=== PATIENT | female | born 1995 | race Caucasian/White ===

== ENCOUNTER 2017-02-10 05:05 | Emergency (ER) | payer OTHER ==
[2017-02-10 05:36] LABS: AMYLASE 33 IU/L (1-118); CHLORIDE 104 mEq/L (99-109); POTASSIUM 3.7 mEq/L (3.7-5.4); SODIUM 141 mEq/L (136-147)
[2017-02-10 05:37] LABS: GLUCOSE 173 mg/dL (70-99)
[2017-02-10 05:39] LABS: ANION GAP 14 MEQ/L (2-14); BASOPHIL COUNT 0.2 K/uL (0-0.1); EOSINOPHIL (%) 1.3 % (0-5); EOSINOPHIL COUNT 0.4 K/uL (0-0.3); HEMATOCRIT 42.4 % (36.0-46.0); IMMATURE GRANULOCYTE (%) 1.7 % (0.0-0.7); IMMATURE GRANULOCYTE COUNT 0.5 K/uL; INSTRUMENT ABS NEUTROPHIL CT 21.7 K/uL; LYMPHOCYTE COUNT 4.8 K/uL (1.0-2.8); MCH 30.7 PG (29.0-34.0); MCV 90.4 FL (83-99); MEAN PLAT.VOLUME 12.4 uM^3 (9.5-12.4); MONOCYTE (%) 4.4 % (3-12); MONOCYTE COUNT 1.3 K/uL (0-0.8); NEUTROPHIL (%) 75.3 % (45-76); NEUTROPHIL COUNT 21.7 K/uL (1.8-6.4); PLATELET COUNT 267 K/uL (156-360); RBC DIS.WIDTH-CV 11.9 % (11.8-14.6); RBC DIS.WIDTH-SD 39.3 % (39-53); RED BLOOD COUNT 4.69 M/uL (3.80-5.20); WHITE BLOOD COUNT 28.8 K/uL (4.1-10.2)
[2017-02-10 05:41] LABS: SERUM ETHYL ALCOHOL < 10 mg/dL
[2017-02-10 05:42] LABS: UREA NITROGEN (BUN) 16 mg/dL (9-23)
[2017-02-10 05:44] LABS: LIPASE 27 U/L (1.0-51.0)
[2017-02-10 05:45] LABS: GFR ESTIMATE (CALCULATED) > 59 mL/min/
[2017-02-10 06:19] LABS: QUANTITATIVE HCG < 4.0 MIU/ML
[2017-02-10 07:46] LABS: ADD MIUA? YES; BILIRUBIN NEGATIVE; BLOOD MODERATE; COLOR YELLOW ((YELLOW)); GLUCOSE (STRIP) NEGATIVE; KETONES NEGATIVE; LEUKOCYTES TRACE; NITRITE NEGATIVE; PROTEIN (STRIP) NEGATIVE; UROBILINOGEN 0.2 MG/DL (0.2-1.0)
[2017-02-10 07:55] LABS: BACTERIA NONE SEEN /HPF; EPITHELIAL CELLS RARE /HPF; MUCUS TRACE /LPF; RED BLOOD CELLS 0-5 /HPF (0-5); UCUL ADDED? YES
[2017-02-10 07:56] LABS: ADD MEDTOX COMMENT Y; AMPHETAMINE NEGATIVE (500 ng/mL); BARBITURATES NEGATIVE (200 ng/mL); BENZODIAZEPINES NEGATIVE (150 ng/mL); COCAINE NEGATIVE (150 ng/mL); INTERNAL CONTROLS VALID? YES; METHADONE NEGATIVE (200 ng/mL); METHAMPHETAMINE NEGATIVE (500 ng/mL); OPIATES (MORPHINE) PRESUMPTIVE POSITIVE (100 ng/mL); OXYCODONE NEGATIVE (100 ng/mL); PHENCYCLIDINE NEGATIVE (25 ng/mL); PROPOXYPHENE NEGATIVE (300 ng/mL); THC CANNABINOIDS PRESUMPTIVE POSITIVE (50 ng/mL); TRICYCLIC ANTIDEPRESSANTS NEGATIVE (300 ng/mL)
[2017-02-10 08:16] LABS: SPECIFIC GRAVITY 1.078 (1.000-1.030)
[2017-02-10 08:48] LABS: MARIJUANA QUANT VALUE 0 NG/ML
== END 2017-02-10 07:20 | disposition short-term general hospital (02) ==
LOC: TRA 05:05
PROVIDERS: Emergency Medicine
PROC: 3E0234Z Introduction of Serum, Toxoid and Vaccine into Muscle, Percutaneous Approach (ICD-10-PCS; principal; 2017-02-10)
DX: S32.402A Unspecified fracture of left acetabulum, initial encounter for closed fracture (principal); S90.02XA Contusion of left ankle, initial encounter; S00.81XA Abrasion of other part of head, initial encounter; S50.312A Abrasion of left elbow, initial encounter; S80.812A Abrasion, left lower leg, initial encounter; V42.5XXA Car driver injured in collision with two- or three-wheeled motor vehicle in traffic accident, initial encounter; Z23 Encounter for immunization
CPT/HCPCS: 70450; 70486; 71260; 72125; 72129; 72132; 73130; 73560; 73564; 73590; 73610; 73706; 74177; 80048; 81003; 82150; 83690; 84702; 84999; 85025; 86850; 86900; 86901; 87086; 99281; 99285; G0480; J2270; J2405; J3010